=== PATIENT | female | born 1995 | race Caucasian/White ===

== ENCOUNTER 2017-08-04 23:37 | Emergency (ER) | payer OTHER ==
[2017-08-04 23:43] VITALS: BP 151/97; PULSE 102; TEMP 98.9; O2SAT 98
--- NOTE | 2017-08-05 00:41 | C.PDOC ---
History Of Present Illness 22 year old female presents to the ER with a complaint of intermittent back pain for the past 2 days after she "grabbing something". Patient states she felt a sharp pain to her lower back which has now radiated to her buttocks and legs. Patient did not take any OTC medications for pain; denies incontinence, weakness, numbness, dysuria, or hematuria. Time Seen by Provider: 08/04/17 23:47 Chief Complaint (Nursing): Back Pain History Per: Patient History/Exam Limitations: no limitations Onset/Duration Of Symptoms: Days, Intermittent Episodes Current Symptoms Are (Timing): Still Present Quality Of Discomfort: Sharp Previous Symptoms: None Associated Symptoms: None Recent travel outside of the [place]: No Past Medical History Reviewed: Historical Data, Nursing Documentation, Vital Signs Vital Signs: Last Vital Signs Temp 98.9 F 08/04/17 23:40 Pulse 102 H 08/04/17 23:40 Resp 20 08/05/17 00:49 BP 151/97 H 08/04/17 23:40 Pulse Ox 98 08/05/17 00:41 - Medical History PMH: No Chronic Diseases Surgical History: No Surg Hx Family History: States: Unknown Family Hx - Social History Hx Alcohol Use: Yes Hx Substance Use: No - Immunization History Hx Tetanus Toxoid Vaccination: Yes Hx Influenza Vaccination: No Hx Pneumococcal Vaccination: No Review Of Systems Genitourinary: Negative for: Dysuria, Incontinence, Hematuria Musculoskeletal: Positive for: Back Pain Neurological: Negative for: Weakness, Numbness Physical Exam - Physical Exam Appears: Non-toxic, No Acute Distress Skin: Normal Color, Warm, Dry Head: Atraumatic, Normacephalic Eye(s): bilateral: Normal Inspection Back: Paraspinal Tenderness (Lumbar, right greater than left), Straight Leg Raising (Positive at 30 degrees) Extremity: Normal ROM (x4) Neurological/Psych: Oriented x3, Normal Speech, Normal Motor, Normal Sensation Gait: Other (Ambulatory w/ limp) ED Course And Treatment O2 Sat by Pulse Oximetry: 98 (Room air) Pulse Ox Interpretation: Normal Progress Note: Valium and toradol administered. On reevaluation, patient reports improvement of pain and is requesting to leave. Will discharge home with Rx and instructions to follow up with PMD. 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 - Scribe Statement The provider has reviewed the documentation as recorded by the Scribdimas Tolbert All medical record entries made by the Braxton were at my direction and personally dictated by me. I have reviewed the chart and agree that the record accurately reflects my personal performance of the history, physical exam, medical decision making, and the department course for this patient. I have also personally directed, reviewed, and agree with the discharge instructions and disposition.
[2017-08-05 00:58] VITALS: RESP 20
== END 2017-08-05 01:11 | disposition home or self-care (01) ==
LOC: C.ER 23:37
DX: M54.30 Sciatica, unspecified side (principal)
CPT/HCPCS: 96372; 99285; J1885

== ENCOUNTER 2018-05-20 10:30 | Emergency (ER) | payer OTHER ==
[2018-05-20 10:45] VITALS: BMI 34.0
[2018-05-20 10:50] VITALS: BP 119/81; PULSE 96; RESP 17; TEMP 99; O2SAT 98
--- NOTE | 2018-05-20 12:22 | C.PDOC ---
History Of Present Illness 23 year old female presents to the ED for evaluation of a sore throat and right ear pain for the last 10 days. Reports a subjective fever and sick contact with a young child. Admits to taking a three day treatment of azithromycin with no improvement. Denies nausea, vomiting, abdominal pain, and any other associated symptoms. Time Seen by Provider: 05/20/18 11:23 Chief Complaint (Nursing): ENT Problem History Per: Patient History/Exam Limitations: no limitations Onset/Duration Of Symptoms: Days Current Symptoms Are (Timing): Still Present Past Medical History Reviewed: Historical Data, Nursing Documentation, Vital Signs Vital Signs: Last Vital Signs Temp 99.0 F 05/20/18 10:45 Pulse 96 H 05/20/18 10:45 Resp 17 05/20/18 10:45 BP 119/81 05/20/18 10:45 Pulse Ox 98 05/20/18 10:45 Family History: States: Unknown Family Hx - Social History Hx Alcohol Use: Yes Hx Substance Use: No - Immunization History Hx Tetanus Toxoid Vaccination: Yes Hx Influenza Vaccination: No Hx Pneumococcal Vaccination: No Review Of Systems Except As Marked, All Systems Reviewed And Found Negative. Constitutional: Positive for: Fever (subjective.). Negative for: Chills ENT: Positive for: Ear Pain (right. ), Throat Pain (sore.) Gastrointestinal: Negative for: Nausea, Vomiting, Abdominal Pain Physical Exam - Physical Exam Appears: Non-toxic Skin: Normal Color, Warm, Dry Head: Atraumatic, Normacephalic Eye(s): bilateral: PERRL Ear(s): Left: Normal, Right: Other (mild erythema in the canal. ) Oral Mucosa: Moist Throat: Erythema, No Exudate, Other (slight right tonsil enlargement. ) Neck: Normal ROM, Trachea Midline, Supple Chest: Symmetrical, No Deformity Cardiovascular: Rhythm Regular Respiratory: Normal Breath Sounds, No Other (No acute respiratory distress. ) Gastrointestinal/Abdominal: Soft, No Tenderness, No Distention, No Guarding, No Rebound Extremity: Normal ROM (x4) Neurological/Psych: Oriented x3, Normal Speech, Normal Motor, Normal Sensation Gait: Steady ED Course And Treatment O2 Sat by Pulse Oximetry: 98 (RA) Pulse Ox Interpretation: Normal Progress Note: Progress: Given Tylenol. Rapid Strep and [place] Spot. Medical Decision Making Medical Decision Making: monospot and strep neg. will tx for viral pharyngitis supportively. Disposition Counseled Patient/Family Regarding: Studies Performed, Diagnosis, Need For Followup - Disposition Referrals: [facility] [Outside] Disposition: HOME/ ROUTINE Disposition Time: 13:35 Condition: GOOD Additional Instructions: Tylenol for pain Avoid sick contacts Gargle with warm salty water several times a day Follow up medical clinic Prescriptions: Acetaminophen [Tylenol 325mg tab] 650 mg PO Q4 #50 tab Instructions: Viral Pharyngitis (DC) Forms: [employer] (Icelandic), General Discharge Instructions - Clinical Impression Clinical Impression: Pharyngitis - 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 - Scribe Statement The provider has reviewed the documentation as recorded by the Scribe (Daniella Robin) All medical record entries made by the Scribe were at my direction and personally dictated by me. I have reviewed the chart and agree that the record accurately reflects my personal performance of the history, physical exam, medical decision making, and the department course for this patient. I have also personally directed, reviewed, and agree with the discharge instructions and disposition.
== END 2018-05-20 13:47 | disposition home or self-care (01) ==
LOC: C.ER 10:30
DX: J02.9 Acute pharyngitis, unspecified (principal)